=== PATIENT | female | born 1945 | race Caucasian/White ===

== ENCOUNTER 2020-12-18 15:09 | Emergency (ER) | payer MEDICARE, BC ==
[~2020-12-18] VITALS: Ht 177.8 cm; Wt 73.3 kg
--- NOTE | 2020-12-18 17:23 | NUR ---
discussed patient's hypertension with dr emilio [email or web address]
[2020-12-18] MEDS ORDERED: hydrALAZINE 20mg/ml inj. IV ONE ×2 (17:25→19:50)
[2020-12-18 17:50] LABS: BASOPHILS % (AUTO) 0.4 % (0-1); EOSINOPHILS # (AUTO) 0.2 X10'3 (0-0.9); EOSINOPHILS % (AUTO) 2.2 % (0-6); HEMATOCRIT 41.2 % (35.0-45.0); HEMOGLOBIN 13.9 g/dl (12.0-16.0); LYMPHOCYTES # (AUTO) 1.3 X10'3 (1.1-4.8); MEAN CORPUSCULAR HEMOGLOBIN 31.9 PG (27.0-31.0); MEAN CORPUSCULAR HGB CONC 33.7 g/dL (33.0-36.5); MEAN CORPUSCULAR VOLUME 94.5 FL (78-98); MEAN PLATELET VOLUME 7.9 FL (7.4-10.4); MONOCYTES # (AUTO) 0.6 X10'3 (0-0.9); MONOCYTES % (AUTO) 8.4 % (2-12); NEUTROPHILS # (AUTO) 4.9 X10'3 (1.8-7.7); PLATELET COUNT 240 X10'3 (140-440); RED BLOOD COUNT 4.36 X10'6 (4.20-5.60); RED CELL DISTRIBUTION WIDTH 13.2 % (11.5-14.5)
[2020-12-18 18:02] LABS: ALANINE AMINOTRANSFERASE 50 U/L (12-78); ALBUMIN 4.1 G/DL (3.4-5.0); ALBUMIN/GLOBULIN RATIO 1.3 (1.1-1.5); ALKALINE PHOSPHATASE 95 IU/L (46-116); ANION GAP 10 (8-16); ASPARTATE AMINO TRANSFERASE 39 U/L (10-37); BILIRUBIN,TOTAL 0.5 MG/DL (0.1-1.0); BLOOD UREA NITROGEN 15 MG/DL (7-18); BUN/CREATININE RATIO 21.1 (6.6-38.0); CALCIUM 9.4 MG/DL (8.5-10.1); CHLORIDE 104 MMOL/L (99-107); CREATININE 0.71 MG/DL (0.40-0.90); GLUCOSE 102 MG/DL (70-104); POTASSIUM 4.1 MMOL/L (3.5-5.1); SODIUM 144 MMOL/L (135-145); TOTAL CARBON DIOXIDE 29.7 MMOL/L (24-32); TOTAL PROTEIN 7.2 G/DL (6.4-8.2); eGFR 80 ML/MIN
[2020-12-18 18:10] LABS: MAGNESIUM 2.2 MG/DL (1.5-2.4)
[2020-12-18] MEDS ORDERED: enalaprilat dihydrate 2.5mg/2ml vial IV ONE (20:05)
[2020-12-18] MEDS ORDERED: LISI20TA28 PO (20:40)
[2020-12-18] MEDS ORDERED: AMLO2.5T2 PO (20:40)
[2020-12-18 21:38] VITALS: BP 125/60
== END 2020-12-18 21:40 | disposition home or self-care (01) ==
LOC: ER 15:11
DX: I10 Essential (primary) hypertension (principal); R06.02 Shortness of breath; R51.9 Headache, unspecified; M54.2 Cervicalgia; G89.29 Other chronic pain; Z79.899 Other long term (current) drug therapy
CPT/HCPCS: 36415; 71045; 80053; 83735; 83880; 84484; 85025; 93005; 96374; 96375; 96376; 99285; J0360

== ENCOUNTER 2023-09-11 08:41 | Outpatient (CLI) | payer MEDICARE, BC ==
[2023-09-07 09:53] LABS: ALBUMIN 3.8 G/DL (3.4-5.0); ANION GAP 6 (8-16); BLOOD UREA NITROGEN 16 MG/DL (7-18); BUN/CREATININE RATIO 21.6 (10.0-20.0); CALCIUM 9.1 MG/DL (8.5-10.1); CHLORIDE 97 MMOL/L (99-107); CREATININE 0.74 MG/DL (0.40-0.90); GLUCOSE 96 MG/DL (70-104); POTASSIUM 3.5 MMOL/L (3.5-5.1); SODIUM 134 MMOL/L (135-145); TOTAL CARBON DIOXIDE 31.4 MMOL/L (24-32); eGFR 76 ML/MIN
[2023-09-11] MEDS ORDERED: iohexol 350MG/ML 100ml bottle IV ONE (09:54)
== END 2023-09-11 23:59 | disposition home or self-care (01) ==
LOC: RAD 08:41
PROVIDERS: ATTEND Internal Medicine Interventional Cardiology
DX: I65.23 Occlusion and stenosis of bilateral carotid arteries (principal); E78.5 Hyperlipidemia, unspecified
CPT/HCPCS: 36415; 70498; 80048; J3490; Q9967

== ENCOUNTER 2024-03-31 14:05 | Day surgery (SDC) | payer MEDICARE, BC ==
[2024-03-28 09:41] LABS: ALBUMIN 4.2 G/DL (3.4-5.0); ANION GAP 8 (8-16); BLOOD UREA NITROGEN 14 MG/DL (7-18); BUN/CREATININE RATIO 19.7 (10.0-20.0); CHLORIDE 103 MMOL/L (99-107); CREATININE 0.71 MG/DL (0.40-0.90); GLUCOSE 96 MG/DL (70-104); POTASSIUM 4.2 MMOL/L (3.5-5.1); SODIUM 140 MMOL/L (135-145); eGFR 79 ML/MIN
[2024-03-28 09:43] LABS: BASOPHILS % (AUTO) 0.5 % (0-1); EOSINOPHILS # (AUTO) 0.2 X10'3 (0-0.9); EOSINOPHILS % (AUTO) 2.8 % (0-6); HEMATOCRIT 42.5 % (35.0-45.0); HEMOGLOBIN 14.4 g/dl (12.0-16.0); LYMPHOCYTES % (AUTO) 16.2 % (21-51); MEAN CORPUSCULAR HGB CONC 33.9 g/dL (33.0-36.5); MEAN CORPUSCULAR VOLUME 91.6 FL (78-98); MEAN PLATELET VOLUME 7.1 FL (7.4-10.4); MONOCYTES # (AUTO) 0.6 X10'3 (0-0.9); MONOCYTES % (AUTO) 9.5 % (2-12); NEUTROPHILS # (AUTO) 4.3 X10'3 (1.8-7.7); PLATELET COUNT 240 X10'3 (140-440); RED BLOOD COUNT 4.64 X10'6 (4.20-5.60); RED CELL DISTRIBUTION WIDTH 14.1 % (11.5-14.5)
[2024-03-28 09:46] LABS: APTT 28 SECONDS (22-32); PROTHROMBIN TIME 10.1 SECONDS (9.0-12.0)
[2024-03-31] VITALS (11 sets, daily range): BP systolic 88–170; BP diastolic 51–96; PULSE 63–76; RESP 11–18; TEMP 97; O2SAT 95–100
[~2024-03-31] VITALS: Ht 175.3 cm; Wt 77.9 kg
[~2024-03-31 14:05] MED LIST: ACET600C PO; CLOP-32 PO; KRIL500C PO; LOP25T PO; MULT-1085 PO; ROSU40TA71 PO; UBID50TA3 PO
[2024-03-31] MEDS ORDERED: normal saline 1,000 ML IV SCH (15:05)
[2024-03-31] MEDS ORDERED: LORazepam 0.5 MG tablet PO PRN (15:05)
[2024-03-31] MEDS ORDERED: diphenhydrAMINE 25mg capsule PO PRN (15:05)
[2024-03-31] MEDS ORDERED: ROSU20TA73 PO (15:48)
[2024-03-31] MEDS ORDERED: LOSA25TA41 PO (15:48)
[2024-03-31] MEDS ORDERED: ASPI-1265 PO (15:48)
[2024-03-31] MEDS ORDERED: CLOP75TA34 PO (15:49)
[2024-03-31] MEDS ORDERED: DOPamine 400mg/D5W 250ml 0 ML IV ONE (16:04)
[2024-03-31] MEDS ORDERED: LIDOcaine 1% 30ml preserv. free vial ONE (16:04)
[2024-03-31] MEDS ORDERED: iohexol 350MG/ML 100ml bottle IV ONE (16:04)
[2024-03-31] MEDS ORDERED: phenylephrine 10mg/ml inj. -priapism dosing ONE (16:04)
[2024-03-31] MEDS ORDERED: heparin 1,000unit/ml 10ml vial 10 ML ONE (16:04)
[2024-03-31] MEDS ORDERED: atropine 0.1mg/ml 10ml syringe ONE (16:07)
[2024-03-31] MEDS ORDERED: hydrALAZINE 20mg/ml inj. IV ONE (16:49)
[2024-03-31] MEDS ORDERED: ondansetron/PF 4mg/2ml inj ONE (17:11)
[2024-03-31] MEDS ORDERED: proCHLORperazine 10 MG/2 ml inj IV PRN (18:15)
[2024-03-31] MEDS ORDERED: HYDROcodone/acetaminophen 10/325mg tab PO PRN (18:15)
[2024-03-31] MEDS ORDERED: hydrALAZINE 20mg/ml inj. IV PRN (18:15)
[2024-03-31] MEDS ORDERED: HYDROcodone/acetaminophen 5mg/325mg tablet PO PRN (18:15)
[2024-03-31] MEDS ORDERED: acetaminophen 325mg tablet PO PRN (18:15)
[2024-03-31] MEDS ORDERED: pseudoephedrine 30mg tablet PO PRN (18:15)
[2024-03-31] MEDS ORDERED: DOPamine 400mg/D5W 250ml 250 ML IV SCH (18:15)
== END 2024-03-31 20:45 | disposition home or self-care (01) ==
LOC: SSTAY O 14:05
PROVIDERS: ATTEND Student in an Organized Health Care Education/Training Program
DX: I65.22 Occlusion and stenosis of left carotid artery (principal); I10 Essential (primary) hypertension; E78.00 Pure hypercholesterolemia, unspecified; Z86.73 Personal history of transient ischemic attack (TIA), and cerebral infarction without residual deficits; Z79.01 Long term (current) use of anticoagulants; Z79.82 Long term (current) use of aspirin; Z79.899 Other long term (current) drug therapy
CPT/HCPCS: 36222; 36415; 80048; 85025; 85610; 85730; 93005; A6258; C1760; C1769; C1884; C1887; C1894; J0360; J0461; J1644; J2001; J2371; J2405; J7030; Q9967; Z7610; 36224; C1725; C1876; J1265; J2370; J3490

== ENCOUNTER 2024-06-06 08:28 | Outpatient (CLI) | payer MEDICARE, BC ==
[~2024-06-06 08:28] MED LIST changes: -ACET600C PO; +ASPI-1265 PO; -CLOP-32 PO; +CLOP75TA34 PO; -LOP25T PO; +LOSA25TA41 PO; +ROSU20TA73 PO; -ROSU40TA71 PO
== END 2024-06-06 23:59 | disposition home or self-care (01) ==
LOC: VAS 08:28
PROVIDERS: ATTEND Surgery
DX: I65.23 Occlusion and stenosis of bilateral carotid arteries (principal)
CPT/HCPCS: 93880